=== PATIENT | female | born 1985 | race African-American/Black ===

== ENCOUNTER 2017-05-03 09:59 | Emergency (ER) | payer OTHER ==
[~2017-05-03] VITALS: Ht 177.8 cm; Wt 79.4 kg
[2017-05-03] MEDS ORDERED: PANTOPRAZOLE SO40 MG PO (10:56)
[2017-05-03] MEDS ORDERED: PERCOCET 5/31 TABLET PO (11:59)
[2017-05-03 12:04] VITALS: BP 110/84
== END 2017-05-03 12:06 | disposition home or self-care (01) ==
LOC: EME 09:59
DX: S40.011A Contusion of right shoulder, initial encounter (principal); W10.9XXA Fall (on) (from) unspecified stairs and steps, initial encounter
CPT/HCPCS: 73030; 99281; 99284